=== PATIENT | male | born 1945 | race Hispanic/Latino ===

== ENCOUNTER 2020-09-04 06:52 | Observation (INO) | payer MEDICARE ==
[2020-08-30 10:16] LABS: BASOPHILS # (AUTO) 0.1 (0.0-0.1); BASOPHILS % 0.9 % (0.0-1.0); EOSINOPHILS # (AUTO) 0.2 (0.0-0.4); HEMATOCRIT 46.3 % (38.2-49.6); HEMOGLOBIN 15.6 g/dL (14.0-18.0); LYMPHOCYTES # (AUTO) 1.9 (1.0-3.2); LYMPHOCYTES % 29.4 % (18.0-39.1); MEAN CORPUSCULAR HEMOGLOBIN 32.1 pg (28-32); MEAN CORPUSCULAR HGB CONC 33.7 g/dL (31-35); MEAN CORPUSCULAR VOLUME 95.3 fL (81-99); MONOCYTES # (AUTO) 0.5 (0.2-0.8); MONOCYTES % 6.8 % (4.4-11.3); NEUTROPHILS # (AUTO) 3.9 (2.1-6.9); NEUTROPHILS % 59.6 % (38.7-80.0); PLATELET COUNT 286 x10e3/uL (140-360); RED BLOOD COUNT 4.86 x10e6/uL (4.3-5.7); RED CELL DISTRIBUTION WIDTH 12.8 % (11.7-14.4)
--- NOTE | 2020-08-30 11:10 | Diagnostic Imaging Report ---
EXAMINATION: CHEST 2 VIEWS INDICATION: Pre-operative COMPARISON: None FINDINGS: LINES/TUBES:None LUNGS:The lungs are well-inflated. No focal consolidation or pulmonary edema. PLEURA:No pleural effusion or pneumothorax. MEDIASTINUM:The cardiomediastinal silhouette appears normal in size and shape. BONES/SOFT TISSUES:No acute osseous injury. ABDOMEN:No free air under the diaphragm. IMPRESSION: No focal pneumonia or pulmonary edema. Signed by: Giselle Zamora MD on 08/30/2020 11:07 AM
[~2020-09-04] VITALS: Ht 172.7 cm; Wt 88.1 kg
[~2020-09-04 06:52] MED LIST: AMLODIPINE BESY10 MG PO; ASPIRIN81 MG; ATORVASTATIN CA10 MG PO; AZITHROMYCIN250 MG PO; BLOOD PRESSURE; CHOLESTEROL1 GM; FLOMAX0.4 MG PO; NAPROXEN250 MG PO; OMEPRAZOLE40 MG; PROSTATE MEDICATION; STOMACH RELIEF262 MG
[2020-09-04] MEDS ORDERED: BUPIVACAINE 7.5MG/ML /DEXTROSE 82.5MG/ML 2 ML AMP INJ ONE (07:19)
[2020-09-04] MEDS ORDERED: CELECOXIB 200 MG CAP ONE (07:25)
[2020-09-04] MEDS ORDERED: DEXAMETHASONE SOD PHOS 10 MG/1 ML VIAL ONE (07:25)
[2020-09-04] MEDS ORDERED: GABAPENTIN 300 MG CAP ONE (07:25)
[2020-09-04] MEDS ORDERED: VANCOMYCIN HCL 1,000 MG ONE (07:25)
[2020-09-04] MEDS ORDERED: CEFAZOLIN SOD 1 GM/NS 50ML 100 ML IV ONE (07:25)
[2020-09-04] MEDS ORDERED: SODIUM CHLORIDE 0.9% 500ML 500 ML ONE (07:26)
[2020-09-04] MEDS ORDERED: TRANEXAMIC ACID 1,000 MG/10 ML ML ONE (07:26)
[2020-09-04] MEDS ORDERED: ROPIVACAINE 246.25 MG, EPINEPHRINE HCL 1:1000 1ML 0.5 MG, CLONIDINE HCL 0.08 MG, KETORO... INJ ONE ×5 (08:00)
[2020-09-04] MEDS ORDERED: KETOROLAC TROMETHAMINE 30 MG/ML VIAL IV PRN (09:30)
[2020-09-04] MEDS ORDERED: ACETAMINOPHEN 650 MG SUPP PR PRN (09:30)
[2020-09-04] MEDS ORDERED: SODIUM CHLORIDE 0.9% 1000ML 1,000 ML IV SCH (09:30)
[2020-09-04] MEDS ORDERED: DOCUSATE SODIUM 100 MG CAP PO PRN (09:30)
[2020-09-04] MEDS ORDERED: HYDROCODONE/APAP 5MG-325MG TAB PO PRN (09:30)
[2020-09-04] MEDS ORDERED: ONDANSETRON HCL INJ 2MG/ML 2ML 2 MG/ML VIAL IV PRN (09:30)
[2020-09-04] MEDS ORDERED: DIPHENHYDRAMINE HCL INJ 50 MG/ML VIAL IV PRN (09:30)
[2020-09-04] MEDS ORDERED: HYDROCODONE/APAP 7.5MG-325MG 1 EA TAB PO PRN (09:30)
[2020-09-04] MEDS ORDERED: ZOLPIDEM TARTRATE 5 MG TAB PO PRN (09:30)
--- OUTSIDE RECORDS SUMMARY | 2020-09-04 09:40 | XMS REPORT | Continuity of Care Document ---
Author Author [facility] t Organization [facility] Address [address] [place] [address] Phone Unavailable Care Team Providers Care Features Reporter Name Role Phone MJ ACOSTA Unavailable Payers Payer Name Policy Type Policy Number Effective Date Expiration Date S ource Problems This patient has no known problems. Allergies, Adverse Reactions, Alerts Allergy Name Allergy Type Status Severity Reaction(s) Onset Date Inacti ve Date Treating Clinician Comments Source No Known Contrast Allergies DA Active U 2009-02-01 00:00: 00 [facility] No Known Drug Allergies DA Active U 2009-02-01 00:00:00 [facility] No Known Food Allergies DA Active U 2009-02-01 00:00:00 [facility] No Known Other Allergies DA Active U 2009-02-01 00:00:00 [facility] Medications This patient has no known medications. Procedures This patient has no known procedures. Results Test Description Test Time Test Comments Results Result Comments Source CHEST 2 VIEWS 2020-08-30 11:06:00 [facility] 1945 Sex: M [address] [address] Patient Name: SIMBA COTO MR #: [id number] : 1945 Age/Sex: 75/M Req #: [id number] Adm Physician: Ordered by: MJ ACOSTA MD Report #: [id number] Location: OR Room/Bed: Procedure: [id number] DX/CHEST 2 VIEWS Exam Date: 08/30/20 Exam Time: 1028 REPORT STATUS: Signed EXAMINATION: CHEST 2 VIEWS INDICATION: Pre-operative COMPARISON: None FINDINGS: LINES/TUBES:None LUNGS:The lungs are well-inflated. No focal consolidation or pulmonary edema. PLEURA:No pleural effusion or pneumothorax. MEDIASTINUM:The cardiomediastinal silhouette appears normal in size and shape. BONES/SOFT TISSUES:No acute osseous injury. ABDOMEN:No free air under the diaphragm. IMPRESSION: No focal pneumonia or pulmonary edema. Signed by: Tammie Piedra MD on 08/30/2020 11:07 AM Dictated By: TAMMIE PIEDRA MD 06 Transcribed By: Nayan TEMPLETON on 08/30/201106 COPY TO: MJ ACOSTA MD - TRANSRECTAL 2020-02-25 10:18:00 Name: SIMBA BRUCE [facility] : 1945 Age/S: 74 / M [address] Unit #: [id number] Loc: [place] [address] Phys: Luann Bryan MD Acct: [id number] Dis Date: Status: REG CLI PHONE #: [phone] Exam Date: 02/25/2020 0998 FAX #: [phone] Reason: R39.15 EXAMS: CPT CODE: [id number] US TRANSRECTAL 02541 HISTORY: R39.15. COMPARISON: None available. Location: [facility]. Survey of the prostate gland: Prostate measured 5.1 x 2.5 x 5.6 cm with volume of 36.9 mL. Relatively homogeneous echogenicity and texture. No solid or cystic lesions within the peripheral zone. No lesions noted within the transitional zone. Right central zone solid well-circumscribed lesion measured 5.7 x 3.3 x 4.6 mm. IMPRESSION: Prostate volume of 36.9 mL. Homogeneous echogenicity and texture. No lesions within the transitional or the peripheral zones. Well-circumscribed solid lesion within the right central zone measuring 5.6 mm. at 1018 Reported and signed by: Ryan Layton M.D. CC: Luann Bryan MD Technologist: KRYSTLE EGAN RT(R),RDMS Trnscb Date/Time: 02/25/2020 (1018) [email or web address] Orig Print D/T: S: 02/25/2020 (1021) Probe: [id number] PAGE 1 Signed Report
--- NOTE | 2020-09-04 10:45 | Diagnostic Imaging Report ---
EXAMINATION: PELVIS AP 1-2 VIEWS INDICATION: Postoperative COMPARISON: None FINDINGS: AP radiograph of the pelvis demonstrates immediate postoperative findings of right total hip replacement. Alignment is anatomic. No unexpected fracture. Postoperative soft tissue emphysema. Surgical skin beba in place. Anatomic alignment of prior left total hip replacement. IMPRESSION: Anatomic alignment status right total hip replacement. Anatomic alignment of prior left total hip replacement. Signed by: Giselle Zamora MD on 09/04/2020 10:41 AM
--- NOTE | 2020-09-04 10:49 | Consultation ---
DATE OF CONSULTATION: 09/04/2020 REASON FOR CONSULTATION: Medical management. HISTORY OF PRESENT ILLNESS: This is a 75-year-old man, who was initially admitted to [facility] with diagnosis of advanced right knee joint osteoarthritis. The patient underwent successful right total knee arthroplasty today that was performed by Dr. Senthil Canas. The patient states pain is well controlled. The patient voices no other complaints. The patient did undergo COVID-19 test by PCR on August 30, 2020 which was negative. REVIEW OF SYSTEMS: GENERAL: Weight is stable. No fever or chills. HEENT: No headaches, no visual changes. CARDIOVASCULAR/RESPIRATORY: No chest pain. No shortness of breath. No cough. GI: No nausea, vomiting, diarrhea or constipation. : No Rodriguez catheter in place. The patient states his BPH issues well controlled with tamsulosin. NEUROMUSCULAR: The patient states he has remote history of left total knee replacement. The patient states he was experiencing consider amount of right knee arthritic pain prior to the surgery. The patient denies any neuropathic issues. ALLERGIES: NO KNOWN DRUG ALLERGIES. HOME MEDICINES: 1. Amlodipine 10 mg daily. 2. Aspirin 81 mg daily. 3. Atorvastatin 10 mg at bedtime. 4. Naproxen 220 mg every 4 hours p.r.n. pain. 5. Omeprazole 40 mg daily. 6. Tamsulosin 0.4 mg at bedtime. PAST MEDICAL HISTORY: 1. Advanced right knee degenerative joint disease. 2. Hypertensive heart disease. 3. Hyperlipidemia. 4. GERD. 5. Benign prostatic hypertrophy. PAST SURGICAL HISTORY: 1. Right total knee arthroplasty today. 2. Left total knee arthroplasty in 2002. 3. Laparoscopic cholecystectomy in 2003. FAMILY HISTORY: Noncontributory. SOCIAL HISTORY: This man is and lives with his . He is retired. The patient denies any tobacco or alcohol use. PHYSICAL EXAMINATION: GENERAL: He is awake, alert. He is oriented. He is currently in the postanesthesia care unit. The patient speaks only Kiswahili. He does not appear to be in any obvious distress. The patient is fully oriented. Height 5 feet 8 inches, weight 190 pounds. BMI 28. VITAL SIGNS: Blood pressure is 100/56, pulse 64, respiratory rate 22, ox saturation 95% on room air, temperature is 97.8. INTEGUMENT: Skin is warm and dry. No pallor, jaundice or diaphoresis. HEENT: Anicteric sclerae. Moist mucous membranes. NECK: Supple. CARDIOVASCULAR: Regular rate and rhythm with S4 gallop. LUNGS: No rales, no rhonchi, no wheezes. ABDOMEN: Benign. EXTREMITIES: No edema or deformity. The patient's right knee joint is currently dressed. No edema in legs. NEUROLOGIC: Intact. No focal deficits appreciated. DIAGNOSES: 1. Status post right total knee arthroplasty today. 2. Hypertensive heart disease. PLAN: 1. Pain control. 2. Blood pressure control and monitoring. 3. Encourage incentive spirometry usage to prevent atelectasis. 4. Mobilize patient with physical therapy. 5. Resume all home medications except naproxen. I would like to thank, Dr. Senthil Canas for his generous consult. I spent 40 minutes in the care of this patient. MD MANJULA Monk/NATA /[id number] MTDD
--- NOTE | 2020-09-04 11:24 | Operative Report ---
DATE OF PROCEDURE: 09/04/2020 SURGEON: Senthil Canas MD LACER AND TIER: Moshe Lisa PA-C. PREOPERATIVE DIAGNOSIS: Osteoarthritis, right hip. POSTOPERATIVE DIAGNOSIS: Osteoarthritis, right hip. PROCEDURE: Right total hip arthroplasty. INDICATIONS: The patient is a 75-year-old gentleman with end-stage arthritis of his right hip. He has failed conservative management and would like to proceed with a right total hip replacement. He went through a left total hip replacement years ago at an outside institution. The left hip is notably lateralized. He has a significant limb length discrepancy. This will come into play regarding the right hip replacement. DESCRIPTION OF PROCEDURE: The patient was brought to the operating room and given a spinal anesthetic. He received tranexamic acid and prophylactic antibiotics in the holding area. He was positioned in the left lateral decubitus position. His right hip was prepped and draped in a sterile manner. A preoperative time-out was performed. A posterior approach was made to the right hip. Hemostasis was obtained with electrocautery. A Charnley self-retaining retractor was placed. Care was taken to avoid injury to the sciatic nerve. The posterior capsule was carefully exposed. Additional hemostasis was performed using electrocautery. The hip was notably contracted. A portion of the short external rotators and the posterior capsule were released. An oscillating saw was used to resect the hip femoral head. This was a quite large head and was completely devoid of articular cartilage in the weightbearing surface. Acetabular retractors were carefully placed. There was a large amount of inferior inflammation. This was excised and some bleeding was encountered. Attention was directed towards this to get further hemostasis. The true floor of the acetabulum was then established with a 46 mm reamer. The socket was then sequentially reamed up to 61 mm. This was where we accomplished bleeding hemispherical cancellous bone. The hip was thoroughly irrigated several times with a shower tip pulsatile lavage. A Ronny Biomet 62 mm outer diameter OsseoTi socket was then impacted into place. Fixation was augmented with a single 25 mm screw placed into the ilium. The screw purchase in the fixation was felt to be quite good. The hip was further irrigated and then a highly cross-linked polyethylene liner with a 36 mm inner diameter was impacted into place. Care was taken to make sure that there was no evidence of soft tissue interposition. The socket was packed with a lap sponge and attention was directed towards the proximal femur. A box cutting osteotome and taper pin reamer were used to establish entry to the femoral canal. The Taperloc broaches were impacted. A size 15 stem was required to establish rotational stability in good canal fill. Trial reductions were performed due to the medialization of the humeral head. We elected to use a +3 mm neck. The hip was put through a full range of motion and noted to have good stability. I felt confident the limb length was restored. The trial implants were removed. The hip was further irrigated. The stem was seated. A 36 mm ceramic head with a +3 mm neck was then seated onto the neck of the stem once it was clean and dry. A final reduction was performed. Once again, the hip was noted to have good stability through a full arc of motion. The posterior capsule was repaired with #2 Ethibond. The short external rotators were too contracted to repair. The hip was further irrigated and then 500 mg of vancomycin powder were sprinkled into the wound. The fascia was closed with interrupted #2 Ethibond. The skin was closed with subcuticular Vicryl and beba. A sterile Aquacel bandage was applied. He was returned to the supine position and transported to the recovery room in stable condition. Estimated blood loss was 100 mL. All needle and sponge counts were correct. Senthil Canas MD DR/NATA /[id number]
[2020-09-04] MEDS ORDERED: FENTANYL CITRATE/PF 100MCG/2 ML INJ ONE (11:25)
[2020-09-04] MEDS ORDERED: MIDAZOLAM HCL 2 MG/2 ML VIAL ONE (11:25)
--- NOTE | 2020-09-04 11:40 | NUR ---
received patient from the PACU via stretcher. pt is alert, no s/s of distress, respirations even and nonlabored. patient was transferred to hospital bed by transfer board. foot pumps applied to bilateral feet. daughter is at the bedside
[2020-09-04 12:00] VITALS: BP 99/64
[2020-09-04 12:24] VITALS: BP 99/64
[2020-09-04] MEDS ORDERED: ONDANSETRON HCL INJ 2MG/ML 2ML 2 MG/ML VIAL ONE (12:24)
[2020-09-04] MEDS ORDERED: LIDOCAINE HCL 2% LOCAL INJ 5 ML SDV VIAL INJ ONE (12:24)
[2020-09-04] MEDS ORDERED: PROPOFOL IV EMULSION 10 MG/ML 20 ML VIAL ONE (12:24)
[2020-09-04] MEDS: CEFAZOLIN SOD 1 GM/NS 50ML 50 ML IV SCH ×2 (15:57→21:55)
[2020-09-04 16:21] VITALS: BP 140/75
[2020-09-04] MEDS: ASPIRIN 325 MG TAB PO SCH (17:04)
[2020-09-04] MEDS: CELECOXIB 200 MG CAP PO SCH (17:05)
--- NOTE | 2020-09-04 18:53 | NUR ---
WALKING ROUNDS PERFORMED, RECEIVED PT LAYING SEMI FOWLERS IN BED, AAOX3, RR EVEN AND NON-LABORED, ON ROOM AIR. NO S/SX OF DISTRESS NOTED. DRESSING TO (R) HIP NOTED TO BE CDI. ABDUCTOR PILLOW BETWEEN LEGS. LEFT PT LAYING SEMI FOWLERS IN BED, BED IN LOW LOCKED POSITION, SIDE RAILS UPX2, CALL LIGHT AND PHONE WITHIN REACH.
[2020-09-04 20:00] VITALS: BP 123/64
[2020-09-04] MEDS ORDERED: ATORVASTATIN 10 MG TAB PO SCH (21:00)
[2020-09-04 22:04] VITALS: BP 123/64
[2020-09-05] VITALS: BP 113/68
[2020-09-05 04:00] VITALS: BP 121/67
[2020-09-05 04:42] LABS: HEMATOCRIT 39.2 % (38.2-49.6); HEMOGLOBIN 13.2 g/dL (14.0-18.0)
[2020-09-05] MEDS: CEFAZOLIN SOD 1 GM/NS 50ML 50 ML IV SCH (05:37)
--- NOTE | 2020-09-05 05:57 | NUR ---
TERRY WRAP REMOVED FROM (R) LEG, AQUACEL DRESSING TO (R) KNEE NOTED TO BE CDI. APPLIED DALIA HOSE.
[2020-09-05 07:44] VITALS: BP 111/72
--- NOTE | 2020-09-05 07:59 | Progress Note ---
DATE: 09/05/2020 CHIEF COMPLAINT/HISTORY OF PRESENT ILLNESS: This is a 75-year-old man, who was initially admitted to [facility] with diagnosis of advanced right hip osteoarthritis. Yesterday, the patient underwent successful right total hip arthroplasty that was performed by Dr. Senthil Canas. The patient voices no complaints today. The patient states that his pain is well controlled. The patient's hemoglobin today is 13.2 g/dL. On August 30, 2020, the patient's hemoglobin was 15.6 g/dL. REVIEW OF SYSTEMS: As per HPI. PHYSICAL EXAMINATION: GENERAL: He is awake. He is alert. He is oriented. He is in no obvious distress. VITAL SIGNS: Height is 5 feet 8 inches, weight 194 pounds, BMI 29, blood pressure is 120/68, pulse 72, respiratory rate 18, temperature 97.6, oxygen 95% on room air. INTEGUMENT: Skin is warm and dry. No pallor, jaundice, or diaphoresis. HEENT: Anicteric sclerae. Moist mucous membranes. NECK: Supple. CARDIOVASCULAR: Regular rate and rhythm. LUNGS: No rales. No rhonchi. No wheezes. ABDOMEN: Soft and nontender. EXTREMITIES: The patient's right hip surgical incision is currently dressed. It is clean, dry, and intact. Legs, no edema. NEUROLOGICAL: Intact. DIAGNOSES: 1. Status post right total hip arthroplasty. 2. Hypertensive heart disease. PLAN: 1. Discharge planning for today. 2. Pain control. 3. The patient will continue home medications if discharged today. 4. Mobilize the patient with physical therapy. 5. Encourage continued incentive spirometry usage, specifically 10 inspirations every hour while awake for the next 3 days. I spent 20 minutes in care of this patient. MD MANJULA Monk/NATA /[id number] AMELIE
[2020-09-05] MEDS ORDERED: TAMSULOSIN HCL 0.4 MG CAP PO SCH (09:00)
[2020-09-05] MEDS ORDERED: AMLODIPINE BESYLATE 10 MG TAB PO SCH (09:00)
[2020-09-05] MEDS ORDERED: PANTOPRAZOLE SOD 40 MG TABEC PO SCH (09:00)
[2020-09-05] MEDS: CELECOXIB 200 MG CAP PO SCH (09:09)
[2020-09-05] MEDS: ASPIRIN 325 MG TAB PO SCH (09:09)
[2020-09-05] MEDS ORDERED: ONDANSETRON HCL 4 MG ORAL DISINTEGRATING TAB SL PRN (09:15)
[2020-09-05] MEDS ORDERED: ACETAMINOPHEN 1000 MG/100 ML IV PRN (09:30)
[2020-09-05 10:32] VITALS: BP 111/72
[2020-09-05 11:40] VITALS: BP 121/67
--- NOTE | 2020-09-05 12:14 | NUR ---
Home health and DME arranged by Dr. Canas's office. Home health is set up thru [facility]. CM spoke to Rosa with [facility]. They have pt on schedule to be seen tomorrow. Home health contact information was provided to pt. CM asked him to call them if he does not hear from them within 24 hrs of discharge. RW and 3-in-1 commode was delivered by [employer] to pt's bedside today.
--- NOTE | 2020-09-05 13:00 | NUR ---
paged Dr. Freed to inform him that Dr. Canas put in discharge orders.
--- NOTE | 2020-09-05 14:00 | NUR ---
have not received a call back from Dr. Freed. Patient's daughter stated that she has to leave by 1500
== END 2020-09-05 14:02 | disposition home or self-care (01) ==
LOC: OR 06:52 → PACU V 09:25 → MED/SURG 11:36
PROVIDERS: ADMIT Specialist; ATTEND Specialist
DX: M16.11 Unilateral primary osteoarthritis, right hip (principal); M17.11 Unilateral primary osteoarthritis, right knee; K21.9 Gastro-esophageal reflux disease without esophagitis; E78.5 Hyperlipidemia, unspecified; Z20.828 Contact with and (suspected) exposure to other viral communicable diseases; I11.9 Hypertensive heart disease without heart failure; N40.0 Benign prostatic hyperplasia without lower urinary tract symptoms; Z01.818 Encounter for other preprocedural examination
CPT/HCPCS: 27130; 36415 ×2; 71046; 72170; 85014; 85018; 85025; 86850; 86900; 86920; 93005; 97110 ×2; 97116 ×2; 97161; 97530; C1713 ×3; C1776 ×2; G0378 ×2; J0171; J0690 ×2; J1100; J1885; J2001; J2250; J2405; J2704; J2795; J3010; J3370; J7030; J7040; S0164; U0002

== ENCOUNTER 2022-02-26 10:43 | Emergency (ER) | payer MEDICARE, OTHER ==
[~2022-02-26] VITALS: Ht 172.7 cm; Wt 88.0 kg
[2022-02-26] MEDS ORDERED: MUPIROCIN22 GM TOP (12:50)
== END 2022-02-26 13:05 | disposition home or self-care (01) ==
LOC: ER 11:43
DX: S02.2XXA Fracture of nasal bones, initial encounter for closed fracture (principal); M25.512 Pain in left shoulder; M25.552 Pain in left hip; W01.0XXA Fall on same level from slipping, tripping and stumbling without subsequent striking against object, initial encounter; Y93.01 Activity, walking, marching and hiking; Y92.008 Other place in unspecified non-institutional (private) residence as the place of occurrence of the external cause; I10 Essential (primary) hypertension; E78.5 Hyperlipidemia, unspecified; K21.9 Gastro-esophageal reflux disease without esophagitis; Z96.643 Presence of artificial hip joint, bilateral
CPT/HCPCS: 70450; 70486; 72125; 99283